=== PATIENT | female | born 1990 | race African-American/Black ===

== ENCOUNTER 2018-10-01 23:29 | Emergency (ER) | payer MEDICAID ==
[~2018-10-01] VITALS: Ht 154.9 cm; Wt 111.0 kg
[2018-10-02] MEDS ORDERED: SODIUM CHLORIDE 0.9% 1,000 ML IV ONE (00:51)
[2018-10-02] MEDS ORDERED: MORPHINE SULFATE 4 MG/ML CPJ (NOT FOR IM USE) IV STA (00:51)
[2018-10-02] MEDS ORDERED: ONDANSETRON HCL 4MG/2ML INJ IV STA (00:51)
[2018-10-02 01:28] LABS: CHLORIDE 107 mEq/L (98-107)
[2018-10-02 01:31] LABS: BASOPHILS % 0.3 % (0.0-2.0); EOSINOPHILS % 0.8 % (0.0-5.0); HEMATOCRIT. 35.8 % (36.0-48.0); HEMOGLOBIN. 11.7 g/dL (12.0-16.0); LYMPHOCYTES % 33.5 % (20.0-50.0); MEAN CORPUSCULAR HEMOGLOBIN 26.7 pg (28.0-32.0); MEAN CORPUSCULAR VOLUME 81.6 fL (81.0-99.0); MEAN PLATELET VOLUME 8.1 fl (7.4-10.4); NEUTROPHILS % 59.4 % (40.0-76.0); PLATELET 244 x1000/uL (130-400); RED BLOOD CELL COUNT 4.39 mill/uL (4.2-5.4); RED CELL DISTRIBUTION WIDTH 13.9 % (11.6-14.6)
[2018-10-02 01:38] LABS: CLARITY URINE CLOUDY (CLEAR); COLOR URINE YELLOW (YELLOW); KETONES URINE TRACE (NEGATIVE); LEUKOCYTE ESTERASE URINE 1+ (NEGATIVE); NITRITE URINE NEGATIVE (NEGATIVE); OCCULT BLOOD URINE NEGATIVE (NEGATIVE); PH URINE 5.5 (4.5-8.0); PROTEIN URINE NEGATIVE (NEGATIVE); SPECIFIC GRAVITY URINE 1.023 (1.005-1.030)
[2018-10-02 05:22] VITALS: BP 120/70
== END 2018-10-02 05:27 | disposition home or self-care (01) ==
LOC: ER 23:29
DX: N12 Tubulo-interstitial nephritis, not specified as acute or chronic (principal)
CPT/HCPCS: 36415; 74176; 80053; 81003; 81025; 83690; 85025; 87077; 87086; 87186; 96374; 96375; 99284; J2270; J2405; J7030

== ENCOUNTER 2019-01-05 19:22 | Emergency (ER) | payer MEDICAID ==
[~2019-01-05] VITALS: Ht 154.9 cm; Wt 107.0 kg
[2019-01-05 19:45] VITALS: BP 116/66
== END 2019-01-05 23:03 | disposition left against medical advice (07) ==
LOC: ER 19:22
DX: R51 Headache (principal); Z53.21 Procedure and treatment not carried out due to patient leaving prior to being seen by health care provider

== ENCOUNTER 2019-09-05 16:45 | Observation (INO) | payer MEDICAID ==
[~2019-09-05] VITALS: Ht 154.9 cm; Wt 126.1 kg
[2019-09-05 18:13] LABS: COLOR URINE YELLOW (YELLOW); KETONES URINE 4+ (NEGATIVE); LEUKOCYTE ESTERASE URINE 1+ (NEGATIVE); NITRITE URINE NEGATIVE (NEGATIVE); OCCULT BLOOD URINE NEGATIVE (NEGATIVE); PROTEIN URINE TRACE (NEGATIVE); SPECIFIC GRAVITY URINE 1.031 (1.005-1.030)
[2019-09-05 18:24] LABS: CLARITY URINE HAZY (CLEAR)
[2019-09-05 19:47] LABS: BASOPHILS % 0.2 % (0.0-2.0); EOSINOPHILS % 0.3 % (0.0-5.0); HEMATOCRIT. 34.6 % (36.0-48.0); HEMOGLOBIN. 11.5 g/dL (12.0-16.0); LYMPHOCYTES % 14.5 % (20.0-50.0); MEAN CORPUSCULAR HEMOGLOBIN 27.4 pg (28.0-32.0); MEAN CORPUSCULAR VOLUME 82.7 fL (81.0-99.0); MEAN PLATELET VOLUME 7.9 fl (7.4-10.4); MONOCYTES % 4.2 % (2.0-8.0); NEUTROPHILS % 80.8 % (40.0-76.0); PLATELET 260 x1000/uL (130-400); RED BLOOD CELL COUNT 4.19 mill/uL (4.2-5.4); RED CELL DISTRIBUTION WIDTH 14.1 % (11.6-14.6)
[2019-09-05] MEDS ORDERED: CEFAZOLIN 2,000 MG in DEXT 5% WATER 100 ML IV NR (20:30)
== END 2019-09-05 22:20 | disposition home or self-care (01) ==
LOC: 8WST 16:45 → 8 EST A/PP 17:04
PROVIDERS: ADMIT Obstetrics & Gynecology; ATTEND Obstetrics & Gynecology
DX: O62.9 Abnormality of forces of labor, unspecified (principal); O26.892 Other specified pregnancy related conditions, second trimester; R10.9 Unspecified abdominal pain; R42 Dizziness and giddiness; Z3A.21 21 weeks gestation of pregnancy
CPT/HCPCS: 36415; 76700; 76805; 81003; 85025; 96365; 99281; G0378; J0690; J7060; 96360

== ENCOUNTER 2023-11-30 10:58 | Emergency (ER) | payer MEDICAID ==
[~2023-11-30] VITALS: Ht 167.6 cm; Wt 95.0 kg
[2023-11-30 11:14] VITALS: BP 112/59; PULSE 87; RESP 18; O2SAT 100; O2SAT 99
[2023-11-30 13:30] VITALS: TEMP 98.2
[2023-11-30] MEDS: ACETAMINOPHEN 325MG TABLET PO ONE (13:30)
[2023-11-30] MEDS ORDERED: IBUP-2030 MT (13:45)
[2023-11-30] MEDS ORDERED: CYCL5TAB MT (13:45)
== END 2023-11-30 14:14 | disposition home or self-care (01) ==
LOC: ER 10:58
DX: S13.4XXA Sprain of ligaments of cervical spine, initial encounter (principal); S09.90XA Unspecified injury of head, initial encounter; V49.9XXA Car occupant (driver) (passenger) injured in unspecified traffic accident, initial encounter; Y93.89 Activity, other specified; Y92.89 Other specified places as the place of occurrence of the external cause; Y99.8 Other external cause status
CPT/HCPCS: 81025; 99284

== ENCOUNTER 2024-12-17 08:26 | Emergency (ER) | payer MEDICAID ==
[~2024-12-17] VITALS: Ht 154.9 cm; Wt 72.0 kg
[~2024-12-17 08:26] MED LIST: CYCL5TAB3 MT; IBUP-2030 MT
[2024-12-17 08:49] VITALS: O2SAT 100
[2024-12-17] MEDS ORDERED: SULF1TAB48 MT (11:58)
[2024-12-17 12:15] VITALS: BP 107/62; PULSE 67; RESP 14; TEMP 36.9; O2SAT 100
== END 2024-12-17 12:20 | disposition home or self-care (01) ==
LOC: ER 08:26
DX: L02.411 Cutaneous abscess of right axilla (principal); Z79.899 Other long term (current) drug therapy
CPT/HCPCS: 10060; 99284